=== PATIENT | female | born 1935 | race Caucasian/White ===

== ENCOUNTER 2017-04-15 18:12 | Emergency (ER) | payer MEDICARE, OTHER ==
--- NOTE | 2017-04-15 19:15 | ED ---
Extremity Problem HPI - General Chief complaint: Extremity Problem,Nontraumatic Stated complaint: leg swelling and pain Time Seen by Provider: 04/15/17 18:37 Source: patient, RN notes reviewed Mode of arrival: ambulatory Limitations: physical limitation - History of Present Illness Initial comments: This is an 82-year-old female presents emergency Department with chief complaint of left leg pain, swelling and discoloration. Patient states that she has had some pain for several weeks but pain is seems to worsen. Patient does state that she has Slight swelling and redness or lower extremity. Patient denies any paresthesias. Patient has no history DVT, denies chest pain , shortness breath, fever, history of vascular disease. Patient states she was told that she was having intermittent arthritis in the past but states that it was gone though she states she does not know if they've been in remission or not. Patient states she has pinpoint pain behind her left knee but she has swelling below that into her ankle. Patient states that with prolonged sitting or angulation she has increase in symptoms. Patient states she has not seen anybody for this symptoms including primary care physician or orthopedic physician. Patient states she takes medication for blood pressure - Related Data Home Medications Medication Instructions Recorded Confirmed Calcium Carbonate/Vitamin D3 1 tab PO DAILY 04/15/17 04/15/17 [Calcium 600-Vit D3 400 Caplet] Doxylamine Succinate [Unisom] 25 mg PO HS 04/15/17 04/15/17 Hydrochlorothiazide [Hydrodiuril] 12.5 mg PO DAILY 04/15/17 04/15/17 Meloxicam [Mobic] 7.5 mg PO DAILY 04/15/17 04/15/17 Telmisartan [Micardis] 80 mg PO DAILY 04/15/17 04/15/17 Allergies Allergy/AdvReac Type Severity Reaction Status Date / Time nickel Allergy Rash/Hives Verified 04/15/17 18:53 Review of Systems ROS Statement: Those systems with pertinent positive or pertinent negative responses have been documented in the HPI. ROS Other: All systems not noted in ROS Statement are negative. Past Medical History Past Medical History: Hyperlipidemia, Hypertension, Rheumatoid Arthritis (RA) Additional Past Medical History / Comment(s): 4 retinal detachments, chronic upper back pain History of Any Multi-Drug Resistant Organisms: None Reported Past Surgical History: No Surgical Hx Reported Past Psychological History: No Psychological Hx Reported Smoking Status: Former smoker Past Alcohol Use History: Daily Past Drug Use History: None Reported General Exam Limitations: physical limitation General appearance: alert, in no apparent distress Respiratory exam: Present: normal lung sounds bilaterally. Absent: respiratory distress, wheezes, rales, rhonchi, stridor Cardiovascular Exam: Present: regular rate, normal rhythm, normal heart sounds. Absent: systolic murmur, diastolic murmur, rubs, gallop, clicks Extremities exam: Present: other (Left lower extremity there is tenderness in the popliteal region, swelling of the lower extremity below the knee with mild erythema of the distal tib-fib region pedal pulses are equal bilaterally dorsal pedalis and posterior tibialis patient has full range of motion of lower extremity no hip tenderness no thigh tenderness patient does have mild discomfort with range of motion of left knee but no warmth) Skin exam: Present: warm, dry Course Vital Signs 04/15/17 18:29 Temperature 98.2 F Pulse Rate 85 Respiratory 16 Rate Blood Pressure 149/83 O2 Sat by Pulse 97 Oximetry Medical Decision Making - Medical Decision Making 82-year-old female presented emergency from for left leg pain and swelling. Patient was found to have popliteal Welch's cyst. Patient is having some lower extremity swelling secondary to this. There is no evidence of acute bacterial infection or cellulitis. Patient is advised to elevate rest and ice and wear compression stockings. Patient will follow-up with orthopedic doctor. Patient states she will take her meloxicam at home for pain control. We discussed return parameters and the importance of close follow-up. Disposition Clinical Impression: Bakers cyst Disposition: HOME SELF-CARE Condition: Stable Instructions: Bakers Cyst (ED) Additional Instructions: Please return to the Emergency Department if symptoms worsen or any other concerns. Referrals: Edmond Balbuena MD [Primary Care Provider] - 1-2 days Lauro Almodovar MD [STAFF PHYSICIAN] - 1-2 days Time of Disposition: 19:42
--- NOTE | 2017-04-15 19:27 | US ---
EXAMINATION TYPE: US venous doppler duplex LE LT DATE OF EXAM: 04/15/2017 7:13 PM COMPARISON: NONE CLINICAL HISTORY: Pain. Pain behind left knee, edema left lower leg SIDE PERFORMED: Left TECHNIQUE: The lower extremity deep venous system is examined utilizing real time linear array sonog harvinder with graded compression, doppler sonography and color-flow sonography. VESSELS IMAGED: External Iliac Vein (EIV) Common Femoral Vein Deep Femoral Vein Greater Saphenous Vein * Femoral Vein Popliteal Vein Small Saphenous Vein * Proximal Calf Veins (* superficial vessels) Grayscale, color doppler, spectral doppler imaging performed of the deep veins of the lower extremiti es. There is normal flow, compressibility, vascular waveforms bilaterally Left Leg: NO evidence of DVT. Complex anechoic area left popliteal fossa = 5.6 x 1.5 x 3.5cm. IMPRESSION: 1. No evidence of deep venous tendinosis within the left lower extremity. 2. Complex popliteal fluid collection most commonly represents a complex Welch's cyst or hematoma. Co rrelate with patient history. If further evaluation is warranted clinically MR of the left knee could be performed with and without contrast for further evaluation.
[2017-04-15 20:05] VITALS: BP 165/81; PULSE 75; RESP 18; TEMP 98.3
== END 2017-04-15 20:05 | disposition home or self-care (01) ==
LOC: EC 18:12
DX: M71.22 Synovial cyst of popliteal space [Baker], left knee (principal); I10 Essential (primary) hypertension; M06.9 Rheumatoid arthritis, unspecified; Z87.891 Personal history of nicotine dependence; Z79.1 Long term (current) use of non-steroidal anti-inflammatories (NSAID); Z79.899 Other long term (current) drug therapy; Z91.048 Other nonmedicinal substance allergy status
CPT/HCPCS: 99283